=== PATIENT | female | born 1950 | race Caucasian/White ===

== ENCOUNTER 2017-03-23 13:25 | Day surgery (SDC) | payer BC, OTHER ==
--- NOTE | 2017-03-02 12:49 | DIAGNOSTIC IMAGING REPORT ---
CHEST 2 VIEWS ROUTINE CLINICAL HISTORY: Preoperative chest COMPARISON STUDY: No previous studies for comparison. FINDINGS: The cardiac and mediastinal contours are normal. There is no evidence of focal pulmonary consolidation. There is no evidence of failure. No pleural effusions are visualized.[ There is a thoracolumbar scoliosis IMPRESSION: No active disease in the chest. Electronically signed by: Luis Felipe Randhawa M.D. 03/02/2017 12:48 PM Dictated Date/Time: 03/02/2017 12:47 PM
[2017-03-02 13:15] LABS: BASO % 0.4 %; BASO ABS # 0.03 K/uL (0-0.2); COMPLETE YES; EOS % 3.2 %; HEMATOCRIT 36.6 % (37-47); IG% 0.1 %; LYMPH % 30.9 %; LYMPH ABS # 2.09 K/uL (1.2-3.4); MEAN CELL VOLUME 93.1 fL (80-100); MEAN CORPUSCULAR HEMOGLOBIN 31.3 pg (25-34); MEAN CORPUSCULAR HGB CONC 33.6 g/dl (32-36); MEAN PLATELET VOLUME 8.8 fL (7.4-10.4); MONO % 8.3 %; NEUT % 57.1 %; PLATELET COUNT 316 K/uL (130-400); RED BLOOD COUNT 3.93 M/uL (4.2-5.4); WHITE BLOOD COUNT 6.77 K/uL (4.8-10.8)
[2017-03-02 13:25] LABS: INR 0.9 (0.9-1.1); PROTHROMBIN TIME (PATIENT) 10.1 SECONDS (9.0-12.0)
[2017-03-02 13:37] LABS: URINE APPEARANCE CLEAR (CLEAR); URINE BILIRUBIN NEG (NEG); URINE COLOR YELLOW; URINE EPITHELIAL CELL AUTO 0-5 /lpf (0-5); URINE NITRITE NEG (NEG); URINE SPECIFIC GRAVITY 1.016 (1.000-1.030); UROBILINOGEN NEG (NEG)
[2017-03-02 13:42] LABS: MANUAL MICROSCOPIC REQUIRED? NO; REVIEW REQ? NO
[2017-03-02 13:48] LABS: BLOOD UREA NITROGEN 13 mg/dl (7-18); BUN/CREATININE RATIO 19.9 (10-20); CALCIUM 9.2 mg/dl (8.5-10.1); CARBON DIOXIDE 26 mmol/L (21-32); CHLORIDE 102 mmol/L (98-107); CREATININE 0.64 mg/dl (0.60-1.20); GLUCOSE 93 mg/dl (70-99); POTASSIUM 4.1 mmol/L (3.5-5.1); SODIUM 136 mmol/L (136-145)
--- NOTE | 2017-03-22 16:44 | History and Physical ---
History & Physical Date Mar 22, 2017. Chief Complaint left foot pain History of Present Illness The patient is a 66 year old female with complaints of left foot pain and deformity. She had been treated conservatively for a bunion deformity and hammertoe of the left foot. She failed conservative management and is now being set up for surgical tx. Past Medical/Surgical History Medical Problems: (1) Hysterectomy (2) Seasonal allergies Allergies Coded Allergies: No Known Allergies (Unverified , 03/10/17) Home Medications Scheduled Ascorbic Acid (Vitamin C), 1,000 MG PO QAM Fexofenadine-Pseudoephedrine (Joan-D 12 Hour Allergy), 1 TAB PO QAM Metronidazole (Topical) (Metronidazole), 1 APPLN TOP HS Multiple Vitamin (Multivitamin), 1 TAB PO QAM [Energy Metabolism], 2 TAB PO QAM Physical Examination Skin: warm/dry, no rash Eyes: normal inspection ENT: normal ENT inspection Head: normocephalic, atraumatic Neck: supple, no adenopathy, trachea midline Respiratory/Chest: lungs clear, normal breath sounds, no respiratory distress Cardiovascular: regular rate, rhythm, no murmur Abdomen / GI: normal bowel sounds, non tender Extremities: + pertinent finding (Left foot: hallux valgus deformity, 2nd hammertoe. Tender to palpation at 1st MTP joint, 2nd toe and 2nd metatarsal head. Painful ROM of the 1st MTP and 2nd MTP.) Neurologic/Psych: no motor/sensory deficits, alert Diagnosis Left foot hallux valgus left foot 2nd metatarsalgia left foot 2nd hammertoe Plan of Treatment Recommend a left foot Lapidus with DSTP, 2nd Gamal osteotomy, 2nd DuVries arthroplasty of the PIP joint. All potential risks, benefits, complications, alternatives, and rehab were discussed with the patient. The patient wishes to proceed with the surgery as indicated. She will be scheduled for 03.23.17 with ASA 81 mg BID x 30 days.
[~2017-03-23] VITALS: Ht 162.6 cm; Wt 54.5 kg
[~2017-03-23 13:25] MED LIST: ASCO1CAP3 PO; ATROPINE SULFATE 0.1 MG/ML 5ML SYR IV PRN; CEFAZOLIN 1000MG IV PUSH 5 ML IV SCH; EpHEDrine SULFATE INJ 50 MG/ML AMP IV PRN; FENTANYL CITRATE INJ 50 MCG/1 ML 2 ML VIAL IV PRN; FEXO5TAB2 PO; HYDROmorphone INJ 1 MG/ML SYR IV PRN; LABETALOL HCL IV 5 MG/ML 20ML IV PRN; LACTATED RINGER'S 1000ML 1,000 ML IV SCH; MEPERIDINE HCL 25 MG/ML CARP IV PRN; METR0.75 TOP; MULTTAB58 PO; ONDANSETRON INJ 2 MG/ML 2 ML VIAL IV PRN; [UNRECOGNIZED DRUG - OTHER] PO
--- NOTE | 2017-03-23 13:37 | History & Physical Bridge Note ---
H&P Re-Evaluation Bridge Note: I have examined the patient, reviewed the History & Physical and in the interval since the performance of the History & Physical I have noted the following changes of clinical significance: No changes noted
[2017-03-23 14:00] VITALS: BP 124/87; PULSE 72; TEMP 37; O2SAT 99; Ht 162.6 cm; Wt 54.5 kg
[2017-03-23] MEDS ORDERED: PROPOFOL IV EMULSION 10 MG/ML 20 ML VIAL IV ONE (14:56)
[2017-03-23] MEDS ORDERED: FENTANYL CITRATE INJ 50 MCG/1 ML 2 ML VIAL ONE ×2 (14:56→16:07)
[2017-03-23] MEDS ORDERED: ONDANSETRON INJ 2 MG/ML 2 ML VIAL ONE (14:56)
[2017-03-23] MEDS ORDERED: LIDOCAINE HCL 2% 2 ML VIAL (20MG/ML) ONE (14:56)
[2017-03-23] MEDS ORDERED: DEXAMETHASONE SOD INJ 4 MG/ML VIAL ONE (14:56)
[2017-03-23] MEDS ORDERED: MIDAZOLAM HCL 1 MG/ML 2ML VIAL ONE (14:57)
[2017-03-23] MEDS ORDERED: BUPIVACAINE 0.25% 30 ML VIAL ONE (15:08)
[2017-03-23] MEDS ORDERED: BUPIVACAINE 0.5 % 5 MG/1 ML PF 10ML VIAL ONE (15:12)
[2017-03-23] MEDS ORDERED: BACITRACIN 50000 UNIT VIAL ONE (15:25)
[2017-03-23] MEDS ORDERED: PROM25TA9 PO (16:37)
[2017-03-23] MEDS ORDERED: OXYC-57 PO (16:37)
[2017-03-23] MEDS ORDERED: ASPI81TA28 PO (16:37)
--- NOTE | 2017-03-23 16:39 | Discharge Instructions ---
Discharge Instructions Date of Service Mar 23, 2017. Admission Reason for Admission: Left Foot Hallux Valgus, Metatarsalgia Discharge Discharge Diagnosis / Problem: left foot hallux valgus Discharge Goals Goal(s): Decrease discomfort, Improve function Activity Recommendations Activity Limitations: per Instructions/Follow-up section Weightbearing Status: Left non-weightbearing . Instructions / Follow-Up Instructions / Follow-Up ACTIVITY RECOMMENDATIONS: Limitations: No weight bearing to affected limb at all times. SPECIAL CARE INSTRUCTIONS: * Some drainage onto the dressing is normal and is no cause for alarm. * Some swelling is natural especially after walking. * When resting, keep your foot elevated above the level of your heart. * Call [facility] if you notice: -Increased drainage -Fever over 101 degrees F -Severe constant pain BANDAGE: * Leave bandage/cast in place unless otherwise directed. * Keep bandage/cast dry at all times. PIN CARE: * Leave pins alone. * If pins come loose or fall out, notify physician FOLLOW UP VISIT WITH DR. GUZMAN If appointment is not already scheduled: Please call [facility] after you get home today to schedule a follow-up appointment for [address] Guzman at . Current Hospital Diet Patient's current hospital diet: Discharge Diet Recommended Diet: Regular Diet Procedures Procedures Performed: Left Foot Lapidus with Distal Soft Tissue Procedure, 2nd Gamal, 2nd DuVries Pending Studies Studies pending at discharge: no Medical Emergencies . Who to Call and When: Medical Emergencies: If at any time you feel your situation is an emergency, please call 911 immediately. . Non-Emergent Contact Non-Emergency issues call your: Surgeon Call Non-Emergent contact if: temperature is above 101, your pain is not controlled, your pain is worsening . "Provider Documentation" section prepared by Honorio Dimas. . VTE Core Measure Inpt VTE Proph given/why not?: SCD's
[2017-03-23] MEDS ORDERED: OXYCODONE/ACETAMINOPHEN 5-325 TAB PO PRN ×2 (16:45→18:30)
--- NOTE | 2017-03-23 18:23 | [facility] Post Operative Brief Note ---
Immediate Operative Summary Operative Date Mar 23, 2017. Pre-Operative Diagnosis Left foot severe hallux valgus Hypermobile first ray Left foot 2nd metatarsalgia Left foot 2nd hammer toe Post-Operative Diagnosis Left foot severe hallux valgus Hypermobile first ray Left foot 2nd metatarsalgia Procedure(s) Performed 1. Left Foot Lapidus Hallux Valgus Correction with Distal Soft Tissue Procedure, 2. 2nd Gamal osteotomy 3. 2nd toe DuVries arthroplasty Surgeon Dr Zuniga Solvent Recoverer Surgeon(s) Ed Dimas PA-C Estimated Blood Loss 10 ML Findings see dict Specimens None per surgeon Drains None Anesthesia GLMA w/ popliteal block Complication(s) None Disposition Recovery Room / PACU
--- NOTE | 2017-03-23 18:30 | Anesthesiology Progress Note ---
Anesthesia Post Op Note Date & Time Mar 23, 2017 at 18:30 Vital Signs Pain Intensity: 0 Vital Signs Past 12 Hours Date Time Temp Pulse Resp B/P (MAP) Pulse Ox O2 Delivery O2 Flow Rate FiO2 03/23/17 18:20 79 17 117/75 99 Oxymask 10 03/23/17 18:11 36.3 85 16 112/76 96 Oxymask 10 03/23/17 14:00 37 72 20 124/87 (99) 99 Room Air Notes Mental Status: alert / awake / arousable, participated in evaluation Pt Amnestic to Procedure: Yes Nausea / Vomiting: adequately controlled Pain: adequately controlled Airway Patency, RR, SpO2: stable & adequate BP & HR: stable & adequate Hydration State: stable & adequate Anesthetic Complications: no major complications apparent
--- NOTE | 2017-03-23 18:36 | DIAGNOSTIC IMAGING REPORT ---
L FOOT 2 VIEWS CLINICAL HISTORY: 66 years-old Female presenting with LEFT FOOT. TECHNIQUE: 2 fluoroscopic spot image(s) obtained as part of an intraoperative procedure. COMPARISON: None. FINDINGS/IMPRESSION: Pin fixation across the second toe, which bridges the second metatarsophalangeal joint. 2 screw fixation of the first tarsometatarsal articulation. Anatomic alignment maintained. Please see surgical report for further details. Fluoroscopy dosage (mGy): Not available. Fluoroscopy time: 21 seconds. Number of fluoroscopic spot images: 2. Electronically signed by: Guru Villatoro M.D. 03/23/2017 6:35 PM Dictated Date/Time: 03/23/2017 6:33 PM
--- NOTE | 2017-03-23 18:44 | DIAGNOSTIC IMAGING REPORT ---
L FOOT MIN 3 VIEWS ROUTINE CLINICAL HISTORY: 66 years-old Female presenting with post-op. TECHNIQUE: Frontal, oblique, and lateral views of the left foot were obtained. COMPARISON: Fluoroscopic views performed earlier the same evening. FINDINGS: Overlying plaster splint degrades evaluation of underlying osseous detail. An fixation across the second toe, which bridges the second metatarsophalangeal joint and extends to the base of the second metatarsal. A small screw is also noted at the level of the second metatarsal head. Two screw fixation across the first tarsometatarsal articulation. No hardware complication. Degenerative changes at the first metatarsophalangeal articulation with mild associated subluxation suggested. Enthesophyte at the inferior calcaneus. No other malalignment. IMPRESSION: Fixation across the second metatarsal and second toe as well as arthrodesis of the first tarsometatarsal articulation. No hardware complication. Electronically signed by: Guru Villatoro M.D. 03/23/2017 6:43 PM Dictated Date/Time: 03/23/2017 6:41 PM
[2017-03-23 18:55] VITALS: BP 118/75; PULSE 82; TEMP 36.5; O2SAT 96
[2017-03-23 19:31] VITALS: BP 106/71; PULSE 79; O2SAT 97
--- NOTE | 2017-03-24 03:09 | OPERATIVE REPORT ---
DATE OF OPERATION: 03/23/2017 PREOPERATIVE DIAGNOSES: 1. Left severe hallux valgus deformity. 2. 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 3. Second metatarsalgia. 4. Fixed hammertoe deformity. POSTOPERATIVE DIAGNOSES: Same. PROCEDURES: 1. Left foot Lapidus hallux valgus correction with distal soft tissue procedure. 2. Second Gamal osteotomy. 3. DuVries arthroplasty of the second toe proximal interphalangeal joint. SURGEON: Fredy Zuniga DO BLOW DOWN OPERATOR: Honorio Dimas PA-C, who was present for patient positioning, sterile prep and drape, management of retractors and instruments. He was present through the critical portions of the case including wound closure, application of sterile dressing and transport of the patient to recovery. ANESTHESIA: General LMA with popliteal block. SPECIMENS: None. DRAINS: None. COMPLICATIONS: None. BLOOD LOSS: 2 mL PERTINENT HISTORY: This is a 66-year-old woman who has had chronic progressive and ongoing pain and deformity of the left foot for the last 10-15 years. She attempted and failed conservative management including shoewear modification, activity modification, shoe inserts, orthotics, physician-directed home exercises, physical therapy, anti-inflammatories, and rest. She had radiographic evidence of severe hallux valgus deformity with a widened first intermetatarsal angle and fixed hammertoe deformities. The patient had clinical evidence of the above including painful bunion and painful second toe and hammertoe deformity and second metatarsalgia. The patient was then scheduled for surgery as indicated. All potential risks, benefits, complications, alternatives, rehab, potential for incomplete relief of symptoms, need for further surgery, DVT, PE, , persistent pain, swelling, scarring, weakness, neurovascular injury, wound complications, hardware failure, nonunion, malunion and bone fracture were discussed with the patient. The patient decided to proceed with the procedure as indicated. PROCEDURE: After popliteal block was administered in the preop holding area, the patient was then taken to the operative suite and placed supine on the operating room table. After review of the consent and identification of proper operative site, the patient was anesthetized and LMA was placed. Next, tourniquet was placed high on the left thigh over cast padding. Left lower extremity was then sterilely prepped and draped in usual fashion, elevated, and exsanguinated with an Esmarch bandage. An Esmarch tourniquet was applied over sterile surgical towel at the level of the ankle. The pneumatic tourniquet was not used during the case. Next, a 15-blade scalpel was used to make a transverse incision across the proximal interphalangeal joint of the second toe. The incision was deepened through subcutaneous tissue. Meticulous hemostasis was achieved with electrocautery. Full-thickness skin flaps were developed. The incision was then deepened through the skin, extensor and through the dorsal capsule. A small ellipse of tissue was then sharply excised and then the collateral ligament was then incised with 15-blade scalpel. Next, a bone biting rongeur was used to resect the distal aspect of the proximal phalanx. Next, the 15-blade was then used to make an incision between the second and third metatarsal heads. The incision was deepened through the subcutaneous tissue. Meticulous hemostasis was achieved with electrocautery. Full-thickness skin flaps were developed. The second extensor tendon was identified, freed with a 15 blade scalpel and then retracted medially. Next, the joint capsule of the second metatarsophalangeal joint was then incised in axial direction and then elevated both medially and laterally exposing the second metatarsal head. Next, the collateral ligaments were then sharply incised medial and lateral with a 15 blade scalpel. Next, the joint was hyperplantarflexed and an oblique osteotomy was created at approximately 15-degree plane and releasing the capital fragment of the second metatarsal. This was then shifted proximally and slightly superiorly and then the dorsal portion of the osteotomy was then resected with a rongeur. Next, a 1.1-mm drill bit was then used to drill a pilot submersible hole to stabilize the second metatarsal head and this was then stabilized by a single 1.5-mm modular handset screw placed under live fluoroscopic assistance. The joint was then allowed to reduce and then attention was then directed toward the great toe. The 15 blade scalpel was used to make an incision centered over the medial eminence of the first MTP. The incision was then deepened through the subcutaneous tissue. Meticulous hemostasis was achieved with electrocautery. Careful dissection was then performed superiorly and inferiorly with 15-blade scalpel until identifying the superficial cutaneous nerves both dorsal and plantar and then retracted with Sal rakes. Next, an 11-blade scalpel was then used to excise a generous portion of the medial capsule of the first metatarsal head. This ellipse of tissue was then excised and passed off. Next, an L capsulotomy was performed of the first metatarsophalangeal joint. This was then sharply elevated with an 11-blade scalpel and then retracted with the Sal rake. Next, the sagittal saw was used to resect the medial eminence in line with the sagittal sulcus of the first metatarsal head with a sagittal saw. Next, the head was then smoothed and contoured with a rongeur dorsally and removing any prominence of bone created by the osteotomy. Next, the 15-blade was used to make an incision between the first and second metatarsal heads and this incision was then deepened through the subcutaneous tissue. Brenda's fascia was then incised in line with the skin incision and then bluntly dissected into the first intermetatarsal space. Next, the adductor was visualized and palpated and then a Arshaner retractor was placed in this space. A 15-blade scalpel was placed into the interval between the fibular sesamoid and the first metatarsal head. This interval was developed both proximally and distally. Next, the adductor was then sharply incised with a 15-blade scalpel and elevated from the lateral aspect of the sesamoid. Next, the lateral capsule of the first metatarsophalangeal joint was then pie crusted with a 15-blade scalpel. A varus force was then applied to the first MTP joint to release the valgus contracture. This was then followed by reattaching the adductor to the capsule of the first metatarsal head with interrupted 2-0 Vicryl sutures. Next, the 15-blade was used to make an incision at the dorsum of the first tarsometatarsal joint. This incision was then deepened through the subcutaneous tissue. Meticulous hemostasis was achieved with electrocautery. Next, the extensor hallucis longus tendon was identified. The sheath was then incised medially allowing retraction of the extensor hallucis longus laterally. Next, the first tarsometatarsal joint was then entered with the 15-blade scalpel. Capsular tissue was then incised and released. Next, the Hohmann retractors were placed both medial and lateral to the first tarsometatarsal joint, allowing resection of the distal aspect of the first cuneiform and resection of the proximal aspect of the first metatarsal with a sagittal saw. The first intermetatarsal angle was then closed with the resection of the distal aspect of the first cuneiform. Slight plantarflexion was also placed into the fusion site. Next, the wound was copiously irrigated with sterile normal saline. The joint surfaces of the first tarsometatarsal joint were then drilled with 0.062-inch K wire. This allowed increased bone graft to be placed into the fusion site. Next, the fusion site was then provisionally pinned with two 0.062-inch K wires under live fluoroscopic assistance, confirming alignment of the fusion. Next, two crossing 4.0 cancellous fully threaded lag screws were placed under live fluoroscopic assistance stabilizing and compressing the first tarsometatarsal joint fusion into the correct alignment. This closed the first metatarsal space and corrected the hallux valgus angle. Next, the sutures in the first intermetatarsal space were then tied and cut. Next, incision was then copiously irrigated with sterile normal saline until clear. Next, a 0.045-inch K was driven out the second toe distal tip in a retrograde fashion placed under live fluoroscopic assistance into the second metatarsal. This pin was then bent, cut and capped with a Jergens ball. Next, the great toe was held in corrected alignment with regard to varus, valgus and rotation and the medial capsule was then closed using interrupted [id number] 2-0 Vicryl sutures. Once this was completed, final irrigation was performed with sterile normal saline followed by closure of all skin incisions with 4-0 nylon sutures. Final radiographs were obtained after application of a sterile compressive forefoot dressing as well as a bulky Byron Macedo plaster splint, which was placed in neutral dorsiflexion. The tourniquet was released, the patient was awakened and taken to the recovery in stable condition. I attest to the content of the Intraoperative Record and any orders documented therein. Any exception s are noted below.
== END 2017-03-23 19:40 | disposition home or self-care (01) ==
LOC: C.ACU 13:25
PROVIDERS: ATTEND Orthopaedic Surgery Sports Medicine
DX: M20.12 Hallux valgus (acquired), left foot (principal); M77.42 Metatarsalgia, left foot; M20.42 Other hammer toe(s) (acquired), left foot; M20.5X2 Other deformities of toe(s) (acquired), left foot

== ENCOUNTER → 2017-07-12 | Outpatient (CLI) | payer OTHER ==
[~2017-07-12] MED LIST changes: +ASPI81TA28 PO; -ATROPINE SULFATE 0.1 MG/ML 5ML SYR IV PRN; -CEFAZOLIN 1000MG IV PUSH 5 ML IV SCH; -EpHEDrine SULFATE INJ 50 MG/ML AMP IV PRN; -FENTANYL CITRATE INJ 50 MCG/1 ML 2 ML VIAL IV PRN; -HYDROmorphone INJ 1 MG/ML SYR IV PRN; -LABETALOL HCL IV 5 MG/ML 20ML IV PRN; -LACTATED RINGER'S 1000ML 1,000 ML IV SCH; -MEPERIDINE HCL 25 MG/ML CARP IV PRN; -MULTTAB58 PO; -ONDANSETRON INJ 2 MG/ML 2 ML VIAL IV PRN; +OXYC-57 PO; +PROM25TA9 PO
== END | disposition home or self-care (01) ==
LOC: C.LAB1850 14:53
PROVIDERS: ATTEND Internal Medicine
DX: R31.9 Hematuria, unspecified (principal)